=== PATIENT | female | born 1950 | race Caucasian/White ===

== ENCOUNTER 2020-05-17 12:54 | Emergency (ER) | payer MEDICARE, BC, SELFPAY ==
[2020-05-17 12:57] VITALS: BP 173/87; PULSE 56; RESP 18; TEMP 36.8; O2SAT 99; BMI 25.9
--- NOTE | 2020-05-17 13:19 | EKG12_ITS ---
Test Reason : REPEAT Blood Pressure : / mmHG Vent. Rate : 041 BPM Atrial Rate : 041 BPM P-R Int : 272 ms QRS Dur : 070 ms QT Int : 482 ms P-R-T Axes : 025 -14 054 degrees QTc Int : 397 ms Marked sinus bradycardia with 1st degree A-V block Low voltage QRS Abnormal ECG Confirmed by DEANNE CROW, PRIMO ([id number]), news editor ROSEMARIE HOLGUIN ([id number]) on 05/20/2020 1:07:22 PM Referred By: Confirmed By:PRIMO ALICEA MD
--- NOTE | 2020-05-17 13:19 | CT_ITS ---
STUDY: CT BRAIN WITHOUT CONTRAST REASON FOR EXAM: Female, 69 years old. HEADACHE RADIATION DOSAGE (If Supplied By Facility): CTDIvol = ( 60.81 ) mGy, DLP = ( 998.67 ) mGycm TECHNIQUE: Transaxial CT imaging of the brain was performed without administration of intravenous contrast material. Individualized dose optimization techniques were used for this CT. COMPARISON: No relevant priors. FINDINGS: Normal soft tissue structures. Normal calvarium. Normal size ventricles and extra-axial spaces for the patient''s age. Normal white matter tracts of the cerebral hemispheres. Normal basal ganglia and thalami. Normal brainstem. Normal cerebellum. There is no intracranial hemorrhage. There are no findings of an acute ischemic infarction. Normal visualized paranasal sinuses. CT/Brain/Head without Contrast IMPRESSION: Chronic involutional changes of the brain. Electronically Signed: Alon Katz MD at 13:45 EDT , Service support ,
--- NOTE | 2020-05-17 13:20 | ED.DCSUM_ITS ---
History of Present Illness Chief Complaint: Chest Pain Onset: Today Narrative: 69-year-old female with past medical history of hypertension presents with concern for chest pain and dizziness. States approximately 2 hours ago she had pain in her upper chest down at the bottom of her throat. States that it was pressure-like in nature. States that she also began having pressure in her jaw as well as left shoulder. States that she got somewhat dizzy like she was going to pass out. States that she also has a slight frontal headache. Patient did have nausea without vomiting. States that most of the symptoms have improved over time. Denies any shortness of breath. Denies any fever, chills, cough. No sick contacts. No history of coronary artery disease. Past Medical History - Allergies and Home Meds Allergies/Adverse Reactions: Allergies eucalyptus Allergy (Verified 05/17/20 12:57) Swelling Influenza Virus Vaccines Allergy (Verified 05/17/20 12:57) Rash Primary Care Physician: Tatiana Redd MD [Primary Care Provider] - Past Medical History: - - HTN Surgical History: no surgical history Lives: Spouse/ Significant Other Smoking Status: Never smoker Alcohol: None Drugs: None Review of Systems General: Denies: Chills, Fever, Sweats Eyes: Denies: Visual changes - bilaterally, Diplopia ENT: Denies: Rhinorrhea, Sore throat Cardiovascular: Reports: Chest pain. Denies: Palpitations Respiratory: Denies: Dyspnea, Cough, Dyspnea on exertion Gastrointestinal: Reports: Nausea. Denies: Abdominal pain, Vomiting, Diarrhea, Melena, Hematochezia Genitourinary: Denies: Dysuria, Hematuria, Frequency Musculoskeletal: Reports: Arthralgias. Denies: Back pain, Extremity Pain Skin: Denies: Rash, Wounds Neurological: Reports: Headache, - - dizziness. Denies: Weakness, Numbness Physical Exam Vital Signs/Narrative: Vital Signs Temp Pulse Resp BP Pulse Ox 05/17/20 12:57 98.3 F 56 L 18 173/87 H 99 Inital Vital Signs reviewed: Yes General: Well nourished, Well developed, No Acute Distress Head: Normocephalic, Atraumatic Eyes: Perrl, EOMI ENT: Moist mucous membranes, No rhinorrhea Neck: Supple, Nontender Cardiovascular: Regular rate, Regular rhythm, No murmurs Respiratory: No distress, CTA bilaterally, Chest nontender Abdomen: Soft, Nontender, Nondistended, Normal bowel sounds Back: Nontender, Normal Inspection Extremities: Nontender, No edema Skin: Normal color, No rash Neurological: Alert, Oriented x3, Cranial nerves II-XII grossly intact, Normal Strength, Normal Sensation Psychological: Normal affect, Normal Mood Diagnostic/Tx/Re-eval Clinical Impression(s) from Imaging Studies Brain CT 05/17/20 13:19 IMPRESSION: Chronic involutional changes of the brain. Electronically Signed: Alon Katz MD at 13:45 EDT , Service support , Chest X-Ray 05/17/20 13:32 IMPRESSION: No acute pulmonary process Electronically Signed: Alon Katz MD at 13:47 EDT , Service support , Laboratory Data 05/17/20 05/17/20 05/17/20 13:18 13:18 16:21 WBC 6.5 RBC 5.00 Hgb 13.9 Hct 42.7 MCV 85.4 MCH 27.8 MCHC 32.6 RDW Std Deviation 41.4 RDW Coeff of Yossi 13.2 Plt Count 213 MPV 10.1 Immature Gran % (Auto) 0.300 Neut % (Auto) 73.2 H Lymph % (Auto) 19.3 [place] % (Auto) 5.4 Eos % (Auto) 1.2 Baso % (Auto) 0.6 Absolute Neuts (auto) 4.8 Absolute Lymphs (auto) 1.26 Nucleated RBC % 0 Sodium 139 Potassium 4.0 Chloride 110 H Carbon Dioxide 25.0 Anion Gap 4 L BUN 16 Creatinine 0.97 Estim Creat Clear Calc 47.87 Est GFR (MDRD) Af Amer 73 Est GFR (MDRD) Non-Af 60 BUN/Creatinine Ratio 16.5 Glucose 147 H Calcium 8.8 Troponin I < 0.015 < 0.015 - Rhythm Strip Rhythm Strip: Sinus bradycardia Rate: 51 Ectopy: None - EKG Initial EKG Interpretation: Sinus Bradycardia - Bradycardia 51 bpm. NJ interval of 204 ms. QTC of 418 ms. - Medical Decision Making Appears well and nontoxic. Atypical symptoms for ACS. Initial EKG shows no evidence of ischemia. Initial troponin negative. Chest x-ray normal. CT brain also negative given the patient was complaining of dizziness with these abnormal symptoms. Heart score of 3. Repeat troponin so negative. Patient was offered admission. Patient refuses at this time. Will be asked to follow-up with primary care provider as well as given cardiology follow-up. ED Disposition - Plan for ED Patient: Disposition: Home or Assisted Living Instructions: ED Chest Pain Atypical Unkn Cause Referrals: Tatiana Redd MD [Primary Care Provider] - Beka Rangel MD [STAFF PHYSICIAN] -
[2020-05-17 13:31] LABS: Absolute Lymphocyte Count 1.26 X10^3/uL (0.83-4.51); Absolute Neutrophil Count 4.8 X10^3/uL (2.0-7.7); Basophil# 0.04 X10^3/uL; Basophil% 0.6 % (0-1); Eosinophil# 0.08 X10^3/uL; Eosinophils% 1.2 % (0-5); Hematocrit 42.7 % (37-47); Hemoglobin 13.9 g/dL (12.0-15.0); Lymphocyte # 1.26 X10^3/ul (4.0); Lymphocyte % 19.3 % (19-41); Mean Corp Hgb Conc 32.6 g/dL (32-36); Mean Corpuscular Hgb 27.8 pg (27.0-32.0); Mean Corpuscular Volume 85.4 fL (81-99); Mean Platelet Vol. 10.1 fl (6.2-12.0); Monocyte# 0.35 X10^3/uL; Monocyte% 5.4 % (0-10); NRBC Flagged by Analyzer 0 % (0-5); Neutrophil # 4.79 X10^3/uL (2.7-7.7); Neutrophil % 73.2 % (47-70); Platelet Count 213 K/mm3 (150-450); RBC Distribution Width CV 13.2 % (11.6-14.6); RBC Distribution Width SD 41.4 fl (35.1-43.9); White Blood Count 6.5 K/mm3 (4.4-11.0)
--- NOTE | 2020-05-17 13:32 | RAD_ITS ---
STUDY: X-RAY CHEST REASON FOR EXAM: Female, 69 years old. PT PRESENTS WITH JAW TIGHTNESS, HEAVINESS IN LEFT ARM, HEADACHE, SORENESS IN UPPER CHEST AND NAUSEA. TECHNIQUE: Two AP portable views COMPARISON: None. FINDINGS: EKG leads overlie the chest The lungs are clear and expanded. There is no demonstrated pleural abnormality. Normal size heart. Normal mediastinum and miguel. Normal visualized pulmonary arteries. Normal visualized aortic arch and descending thoracic aorta. Normal visualized thoracic spine. Normal visualized ribs, clavicles, and shoulders. There is no demonstrated abnormality of the visualized soft tissue structures of the upper abdomen. RAD/Chest 1 View (Portable) IMPRESSION: No acute pulmonary process Electronically Signed: Alon Katz MD at 13:47 EDT , Service support ,
[2020-05-17 13:42] LABS: Anion Gap 4 (5-15); BUN 16 mg/dL (7-18); BUN/Creat Ratio 16.5 RATIO (10-20); Calcium,Total 8.8 mg/dL (8.5-10.1); Chloride 110 mmol/L (98-107); Creatinine, Serum 0.97 mg/dL (0.55-1.02); EST Glomerular Filtration Rate 60 mL/min (>60); Est Glom Filt Rate - Afr Amer 73 mL/min (>60); Estimated Creatinine Clearance 47.87 ml/min; Glucose 147 mg/dL (74-106); Sodium Level 139 mmol/L (136-145)
[2020-05-17 14:00] VITALS: BP 157/83; PULSE 80; RESP 13; O2SAT 97
[2020-05-17 15:00] VITALS: BP 175/101; PULSE 46; RESP 15; O2SAT 99
[2020-05-17 16:00] VITALS: BP 142/75; PULSE 44; RESP 16; O2SAT 100
--- NOTE | 2020-05-17 16:20 | EKG12_ITS ---
Test Reason : CP Blood Pressure : / mmHG Vent. Rate : 051 BPM Atrial Rate : 051 BPM P-R Int : 204 ms QRS Dur : 076 ms QT Int : 454 ms P-R-T Axes : 007 -07 061 degrees QTc Int : 418 ms Sinus bradycardia Low voltage QRS Borderline ECG Confirmed by DEANNE CROW, PRIMO ([id number]), loan expeditor ROSEMARIE HOLGUIN ([id number]) on 05/20/2020 1:07:48 PM Referred By: Confirmed By:PRIMO ALICEA MD
[2020-05-17 17:20] VITALS: BP 137/79; PULSE 44
== END 2020-05-17 17:26 | disposition home or self-care (01) ==
PROVIDERS: Emergency Provider Emergency Medicine; PCP Internal Medicine
DX: R07.9 Chest pain, unspecified (principal); R00.1 Bradycardia, unspecified; I10 Essential (primary) hypertension; R42 Dizziness and giddiness; R11.0 Nausea; Z79.899 Other long term (current) drug therapy
CPT/HCPCS: 70450; 71045; 80048; 84484; 85025; 93005; 99284; A4216

== ENCOUNTER → 2020-07-03 06:46 | Outpatient (CLI) | payer MEDICARE, BC, SELFPAY ==
[2020-06-12 14:05] VITALS: BMI 27.8
--- NOTE | 2020-07-03 06:47 | ECHOD_ITS ---
Reason For Study: Chest Pain Procedure This was a 2D Doppler, Color Flow transthoracic echocardiogram. Exam performed in department. Left Ventricle Normal LV size. Left ventricular systolic function is normal. The estimated ejection fraction is 60 %. Stage 1 diastolic dysfunction. No regional wall motion abnormalities noted. Right Ventricle Normal RV size. Normal systolic function. Atria Normal left atrium. Normal right atrium. Mitral Valve Normal mitral valve. Tricuspid Valve Normal tricuspid valve. Mild tricuspid valve insufficiency. Pulmonary artery systolic pressure is 24 mmHg. Aortic Valve Normal aortic valve. Trisinus/trileaflet aortic valve. Pulmonic Valve Normal pulmonic valve. Great Vessels Normal aortic root. The pulmonary artery is normal size. Normal inferior vena cava. Pericardium/Pleural No pericardial effusion. MMode/2D Measurements & Calculations LVIDd: 3.5 cm IVSd: 1.2 cm Ao root diam: 3.0 cm LVIDs: 2.6 cm LVPWd: 0.95 cm LA dimension: 3.4 cm RVDd: 3.4 cm FS: 27.1 % LAV(MOD-bp): 47.6 ml LA A4 area: 17.7 cm2 RA A4 area: 18.1 cm2 LAV(MOD-bp) Indexed: 27.3 ml/m2 LAV(MOD-sp2): 42.6 ml LAV(MOD-sp4): 48.0 ml Time Measurements MV dec time: 0.18 sec Doppler Measurements & Calculations MV E max romulo: 81.4 cm/sec Lat Peak E' Romulo: 8.1 cm/sec Med Peak E' Romulo: 11.2 cm/sec MV A max romulo: 111.1 cm/sec E/E' lat: 10.0 E/E' med: 7.3 MV E/A: 0.73 MV V2 max: 126.2 cm/sec MV P1/2t max romulo: 105.0 cm/sec Ao V2 max: 116.5 cm/sec MV max P.4 mmHg MV P1/2t: 89.5 msec Ao max P.4 mmHg MV V2 mean: 65.9 cm/sec MV dec slope: 343.5 cm/sec2 MV mean P.1 mmHg MVA(P1/2t): 2.5 cm2 MV V2 VTI: 39.4 cm LV V1 max: 101.9 cm/sec PA V2 max: 102.1 cm/sec TR max romulo: 228.5 cm/sec LV V1 max P.2 mmHg TR max P.9 mmHg Interpretation Summary Normal LV size. Left ventricular systolic function is normal. The estimated ejection fraction is 60 %. Stage 1 diastolic dysfunction. Ordering Physician: Wade Soto Referring Physician: Tatiana Redd M.D. Performed By: Kiran Rodriguez RCS
--- NOTE | 2020-07-03 17:53 | STRESSREP ---
Stress Test Report Exercise myocardial perfusion stress test. 69-year-old man with a history of hypertension and hyperlipidemia. Stress protocol: Resting EKG demonstrates sinus bradycardia with a rate of 52 bpm normal intervals are noted resting blood pressure is 130/82 mmHg. The patient exercised according to the regular Valente protocol for a total duration of 7 minutes. Patient completed 1 minute into stage III of the Valente protocol. The maximum heart rate attained was 127 bpm which was 85% of max impacted heart rate the maximum workload was 8.5 metabolic equivalents. At rest there were no ST or T wave changes noted to suggest ischemia at peak exercise upsloping ST changes were noted we did not meet the criteria for ischemia. No clinical angina was noted the test was discontinued due to dyspnea and the target heart rate being achieved. The peak blood pressure was 178/88 mmHg with a rate pressure product of 20,200. Myocardial perfusion protocol. 11.1 mCi of technetium 99m sestamibi was injected at rest. The patient exercised according to the regular Valente protocol for 7 minutes at peak exercise 30.9 mCi of technetium 99m sestamibi was injected stress images were obtained stress and rest images were reconstructed and compared in the short axis vertical long horizontal long axis. Gated images were also obtained P Perfusion SPECT analysis: Review of the stress images demonstrate normal uptake of tracer noted in all areas of the myocardium the resting images similarly demonstrate normal uptake of tracer noted in all areas of the myocardium. No reversibility is noted suggest ischemia no previous infarct is noted. Gated SPECT analysis: The gated ejection fraction is 82%. Conclusion: Normal exercise myocardial perfusion stress test. Preserved ejection fraction.
== END ==
PROVIDERS: PCP Internal Medicine; Referring Provider Internal Medicine Cardiovascular Disease; Visit Provider Internal Medicine Cardiovascular Disease
DX: R07.9 Chest pain, unspecified (principal)
CPT/HCPCS: 78452; 93017; 93306; A9500; A4216

== ENCOUNTER 2021-01-02 09:26 | Outpatient (RCR) | payer MEDICARE, OTHER, SELFPAY ==
[2020-08-14 14:31] VITALS: BMI 28.5
[2021-01-02] MEDS: COVID-19 VACC, MRNA(PFIZER)/PF 30 MCG/0.3 ML SYRINGE IM (15:10)
[2021-01-23] MEDS: COVID-19 VACC, MRNA(PFIZER)/PF 30 MCG/0.3 ML SYRINGE IM (15:09)
== END 2021-04-01 23:59 ==
LOC: IMMUN 09:26
PROVIDERS: PCP Internal Medicine; Referring Provider Family Medicine; Visit Provider Family Medicine
DX: Z23 Encounter for immunization (principal)
CPT/HCPCS: 0001A; 0002A; 91300

== ENCOUNTER 2023-09-27 09:56 | Outpatient (RCR) | payer SELFPAY | END 2023-10-24 23:59 | LOC: NS 09:56 | PROVIDERS: PCP Internal Medicine | DX: Z71.3 Dietary counseling and surveillance (principal) ==

== ENCOUNTER 2024-02-17 17:30 | Outpatient (RCR) | payer SELFPAY | END 2024-02-22 23:59 | LOC: NS 17:30 | PROVIDERS: PCP Internal Medicine | DX: Z71.3 Dietary counseling and surveillance (principal) ==